=== PATIENT | male | born 1950 | race Hispanic/Latino ===

== ENCOUNTER 2020-09-07 22:32 | Observation (INO) | payer OTHER ==
[~2020-09-07] VITALS: Ht 162.6 cm; Wt 71.7 kg
[2020-09-07 23:03] LABS: BASOPHILS % (AUTO) 0.4 % (0.0-5.0); EOSINOPHILS % (AUTO) 2.2 % (0.0-8.0); HEMATOCRIT 40.6 % (42-54); LYMPHOCYTES % (AUTO) 32.3 % (21.0-51.0); MEAN CORPUSCULAR HEMOGLOBIN 31.9 pg (27.0-33.0); MEAN CORPUSCULAR HGB CONC 35.2 g/dL (32.0-36.0); MEAN CORPUSCULAR VOLUME 90.6 fL (79-99); MONOCYTES % (AUTO) 6.4 % (3.0-13.0); NEUTROPHILS % (AUTO) 58.5 % (40.0-77.0); PLATELET COUNT (AUTO) 220 K/uL (130-400); RED BLOOD CELL COUNT(AUTO) 4.48 MIL/uL (4.50-6.20); RED CELL DISTRIBUTION WIDTH 11.9 % (11.0-15.5); WHITE BLOOD COUNT (AUTO) 9.2 K/uL (4.8-10.8)
[2020-09-07 23:14] LABS: CREATININE 0.9 mg/dL (0.5-1.5); POTASSIUM 4.2 mmol/L (3.5-5.1)
[2020-09-07 23:19] LABS: ALBUMIN 3.8 g/dL (3.5-5.0); BILIRUBIN,TOTAL 0.4 mg/dL (0.2-1.0); TOTAL PROTEIN, SERUM 7.8 g/dL (6.0-8.3)
[2020-09-08 01:58] LABS: AMPHET/METH SCREEN,URINE NEGATIVE (NEGATIVE); BARBITURATE SCREEN, URINE NEGATIVE (NEGATIVE); BENZODIAZEPINES SCREEN,URINE NEGATIVE (NEGATIVE); CANNABINOID SCREEN,URINE NEGATIVE (NEGATIVE); COCAINE SCREEN,URINE NEGATIVE (NEGATIVE); OPIATE SCREEN,URINE NEGATIVE (NEGATIVE); PHENCYCLIDINE SCREEN,URINE NEGATIVE (NEGATIVE)
[2020-09-08] MEDS ORDERED: ONDANSETRON HCL 4 MG/2 ML VIAL IV PRN (03:15)
[2020-09-08] MEDS: SODIUM CHLORIDE 0.9% 1000ML 1,000 ML IV SCH ×3 (03:15→23:15)
[2020-09-08 05:00] VITALS: BP 131/78
[2020-09-08] MEDS ORDERED: HYDRALAZINE HCL 20 MG/ML VIAL IM PRN (07:00)
[2020-09-08 08:00] VITALS: BP 144/90
[2020-09-08] MEDS ORDERED: FAMOTIDINE 20MG TAB 20 MG TAB PO SCH (09:00)
[2020-09-08] MEDS ORDERED: LOSARTAN 50 MG TABLET PO SCH (09:00)
[2020-09-08] MEDS: PANTOPRAZOLE 40 MG/VIAL IVP SCH (09:23)
[2020-09-08 11:48] VITALS: BP 140/85
[2020-09-08] MEDS ORDERED: LOSA50TA64 PO (12:17)
[2020-09-08] MEDS ORDERED: AMLO-257 PO (12:17)
[2020-09-08] MEDS ORDERED: OMEP-420 PO (12:17)
[2020-09-08] MEDS ORDERED: MONT10TA32 PO (12:17)
[2020-09-08] MEDS ORDERED: LEVO125C4 PO (12:19)
[2020-09-08] MEDS ORDERED: ASPI-1197 PO (12:20)
[2020-09-08] MEDS ORDERED: AMLODIPINE BESYLATE 2.5 MG TAB PO SCH (15:00)
[2020-09-08] MEDS: AMLODIPINE BESYLATE 5 MG TAB PO SCH (15:50)
[2020-09-08 16:00] VITALS: BP 158/86
[2020-09-08] MEDS: ENOXAPARIN SODIUM 30 MG/0.3 ML SQ SCH (16:41)
[2020-09-08] MEDS: LOSARTAN 50 MG TABLET PO SCH (16:42)
[2020-09-08 20:39] VITALS: BP 147/82
[2020-09-09 00:19] VITALS: BP 139/79
[2020-09-09 04:07] VITALS: BP 125/80
[2020-09-09 04:20] LABS: MEAN CORPUSCULAR HGB CONC 34.5 g/dL (32.0-36.0); MEAN CORPUSCULAR VOLUME 92.7 fL (79-99); RED BLOOD CELL COUNT(AUTO) 4.53 MIL/uL (4.50-6.20); WHITE BLOOD COUNT (AUTO) 7.8 K/uL (4.8-10.8)
[2020-09-09] MEDS: SODIUM CHLORIDE 0.9% 1000ML 1,000 ML IV SCH (04:24)
[2020-09-09 04:38] LABS: CREATININE 0.8 mg/dL (0.5-1.5); POTASSIUM 3.9 mmol/L (3.5-5.1)
[2020-09-09 08:00] VITALS: BP 146/80
[2020-09-09] MEDS ORDERED: GADODIAMIDE 10 MMOL/20 ML VIAL IV ONE (10:07)
[2020-09-09] MEDS: PANTOPRAZOLE 40 MG/VIAL IVP SCH (10:40)
[2020-09-09] MEDS: AMLODIPINE BESYLATE 5 MG TAB PO SCH (10:40)
[2020-09-09] MEDS: LOSARTAN 50 MG TABLET PO SCH (10:40)
[2020-09-09] MEDS: ENOXAPARIN SODIUM 30 MG/0.3 ML SQ SCH (10:41)
[2020-09-09 12:00] VITALS: BP 137/85
[2020-09-09] MEDS ORDERED: POTASSIUM CHLORIDE 10% ELIXIR 20 MEQ/15 ML UDCUP PO PRN (13:15)
[2020-09-09] MEDS ORDERED: POTASSIUM CHLORIDE 20 MEQ ERTAB PO PRN (13:15)
[2020-09-09] MEDS ORDERED: POTASSIUM CHLORIDE 20MEQ/100ML 100 ML IV PRN (13:15)
[2020-09-09] MEDS ORDERED: MAGNESIUM 2GM PREMIX 50ML 50 ML IV PRN (13:15)
[2020-09-09] MEDS ORDERED: GLUCAGON 1MG KIT 1 MG ML IM PRN (13:15)
[2020-09-09] MEDS ORDERED: DEXTROSE 50%-WATER 50 ML DISP.SYRIN IV PRN (13:15)
[2020-09-09] MEDS ORDERED: LIDOCAINE HCL-MPF 1% 2ML VIAL IV PRN (13:15)
[2020-09-09 16:00] VITALS: BP 140/86
[2020-09-09 20:47] VITALS: BP 117/70
[2020-09-10 00:14] VITALS: BP 143/96
[2020-09-10 04:05] VITALS: BP 122/72
[2020-09-10 05:16] LABS: ALBUMIN 3.3 g/dL (3.5-5.0); BILIRUBIN,TOTAL 0.5 mg/dL (0.2-1.0); MAGNESIUM 2.1 mg/dL (1.80-2.40); POTASSIUM 3.9 mmol/L (3.5-5.1); TOTAL PROTEIN, SERUM 7.2 g/dL (6.0-8.3)
[2020-09-10 07:56] VITALS: BP 124/75
[2020-09-10] MEDS: LOSARTAN 50 MG TABLET PO SCH (08:49)
[2020-09-10] MEDS: ENOXAPARIN SODIUM 30 MG/0.3 ML SQ SCH (08:49)
[2020-09-10] MEDS: AMLODIPINE BESYLATE 5 MG TAB PO SCH (08:49)
== END 2020-09-10 10:20 | disposition home or self-care (01) ==
LOC: EDH 22:32 → EDHIP 09-08 03:14 → 3DH 09-08 04:41
PROVIDERS: ADMIT Internal Medicine Critical Care Medicine; ATTEND Internal Medicine Critical Care Medicine
DX: D32.0 Benign neoplasm of cerebral meninges (principal); I10 Essential (primary) hypertension; E03.9 Hypothyroidism, unspecified; E87.1 Hypo-osmolality and hyponatremia; K40.90 Unilateral inguinal hernia, without obstruction or gangrene, not specified as recurrent; Z79.82 Long term (current) use of aspirin; Z79.899 Other long term (current) drug therapy
CPT/HCPCS: 36415 ×4; 70450; 70553; 80048; 80053 ×2; 80305; 83735; 84443; 84484 ×3; 85025; 85027; 93005; 93306; 93356; 96361 ×2; 96372 ×3; 96374; 96376; 99285; A9579; C9113 ×3; G0378 ×53; J1650 ×3; J7030

== ENCOUNTER → 2024-05-28 | Outpatient (CLI) | payer OTHER ==
[~2024-05-28] MED LIST: AMLO-257 PO; ASPI-1197 PO; IOHEXOL 350 MG/ML 100ML INFUS..BTL IV ONE; LEVO125C4 PO; LOSA50TA64 PO; MONT-39 PO; OMEP-420 PO
== END | disposition home or self-care (01) ==
LOC: RAH 08:15
PROVIDERS: ATTEND Internal Medicine
DX: K44.9 Diaphragmatic hernia without obstruction or gangrene (principal); N32.89 Other specified disorders of bladder; K62.89 Other specified diseases of anus and rectum; K76.0 Fatty (change of) liver, not elsewhere classified; I70.90 Unspecified atherosclerosis
CPT/HCPCS: 74178; Q9967

== ENCOUNTER 2024-10-14 13:58 | Inpatient (IN) | payer OTHER ==
[~2024-10-14] VITALS: Ht 162.6 cm; Wt 71.2 kg
[~2024-10-14 13:58] MED LIST changes: -IOHEXOL 350 MG/ML 100ML INFUS..BTL IV ONE
--- NOTE | 2024-10-14 15:14 | HMCIMG ---
Exam Type: CHEST 1VW Clinical Information: TACKYCARDIA Comparison: None Findings: The lungs are clear of infiltrates. The heart is normal in size. The bony and soft tissue structures of the chest are unremarkable. Impression: Clear lungs.
--- NOTE | 2024-10-14 15:31 | HP ---
[facility] HISTORY & PHYSICAL Date Patient Seen: Oct 14, 2024 Time of Visit: 15:31 Supervising Physician: Dr. Dax Escobar Primary Care Physician: [facility] Outpatient Specialists: [ ] Inpatient Consults: [ ] PROBLEM LIST: Influenza A Acute complicated cystitis, failed outpatient treatment Sepsis Tachycardia Urine retention Hypertension Hypothyroidism HPI: Patient was a 74-year-old male with a past medical history significant for hypertension who was direct admitted from [facility] today after failed outpatient treatment of acute complicated cystitis. Approximately one week ago patient was also treated for influenza a with p.o. Tamiflu at home. Patient was seen back in the office following treatment of his cystitis with sustained tachycardia and soft blood pressures, was administered bolus IV fluids with mild improvement of his blood pressures. Patient's urinary culture from PCP's office showed E coli rollins susceptible to Rocephin and Macrobid, patient will be started on 2 g of Rocephin IV piggyback daily, pending UA on this admission, patient's heart rate today is between [id number], improved from report from PCP. Patient's chest x-ray shows no acute cardiopulmonary processes, patient states his urinary urgency and retention has improved, pending bladder scan at bedside following his urination of sample. Patient's temperature is 99.1 at this time, SpO2 remains 98% and above, no indication for supplemental O2 at this time. Pending blood labs, patient evaluated in the ED, he is being admitted for acute complicated cystitis which failed outpatient treatment and tachycardia. PAST MEDICAL HX: see above PAST SURGICAL HX: noncontributory SOCIAL HISTORY: No tobacco, ETOH, or illicit drug use Coded Allergies: No Known Drug Allergies (Unverified Allergy, Unknown, 09/08/20) REVIEW OF SYSTEMS: 12 point ROS reviewed with patient. Pertinent positives mentioned above. Otherwise negative. PHYSICAL EXAM: GENERAL: alert, weak, awake oriented x 3 HEENT: EOMI, Sclera non icteric, moist mucosa NECK: Supple, no JVD, trachea midline LUNGS: Clear breath sounds bilaterally. No wheezes HEART: Regular rate and rhythm. Normal S1 and S2, without murmurs ABD: Abdomen soft, nontender. Bowel sounds present EXT: No clubbing cyanosis or edema NEURO: Alert and oriented to person, follows commands Vital Signs (last 8hr) Date Time Temp Pulse Resp B/P (MAP) Pulse Ox O2 Delivery O2 Flow Rate FiO2 10/14/24 13:59 99.0 116 20 122/75 99 0 LABS: DIAGNOSTICS / RADIOLOGY RESULTS: [ ] PLAN NEURO: Minimize central acting medications as possible. Maintain fall precautions, adequate lighting during the day PULMONARY: Supplemental 02 as needed. Maintain aspiration precautions at all times CARDIOVASCULAR: Follow hemodynamics. Vital signs per facility protocol GI & NUTRITION: Continue with nutritional support. Continue stool softeners and laxatives as needed. KIDNEYS & ELECTROLYTES: Strict monitoring of intake, output and overall fluid balance. Avoid nephrotoxic medications to the extent possible. Medications to be dosed according to renal function. Monitor electrolytes and replace as needed ENDOCRINE: Maintain blood glucose between 100-180 at all times. Hypoglycemia protocol in place INFECTIOUS DISEASE: Trend temperature, WBC and procalcitonin level Follow cultures, deescalate antibiotics as soon as possible. Panculture if new onset fever ONCOLOGY/HEMATOLOGY/COAGULATION: Monitor for s/s of bleeding Monitor hemoglobin, coagulation studies as needed SKIN: Pressure ulcer prevention per facility protocol Specialty mattress ORTHO/REHAB: Continue PT/OT Prophylaxis: Continue GI and DVT prophylaxis Code Status: Full Resuscitation Disposition: TBD Other: Total patient care time exceeds 35 minutes excluding all procedures. SOPHIE MENDEZ Oct 14, 2024 15:31
[2024-10-14 16:23] LABS: HEMATOCRIT 37.3 % (42-54); MEAN CORPUSCULAR HEMOGLOBIN 32.9 pg (27.0-33.0); MEAN CORPUSCULAR HGB CONC 34.6 g/dL (32.0-36.0); MEAN CORPUSCULAR VOLUME 95.2 fL (79-99); PLATELET COUNT (AUTO) 136 K/uL (130-400); RED BLOOD CELL COUNT(AUTO) 3.92 MIL/uL (4.50-6.20); RED CELL DISTRIBUTION WIDTH 12.5 % (11.0-15.5); WHITE BLOOD COUNT (AUTO) 9.6 K/uL (4.8-10.8)
[2024-10-14 16:43] LABS: CREATININE 1.3 mg/dL (0.5-1.3); POTASSIUM 3.7 mmol/L (3.5-5.1)
[2024-10-14 16:47] LABS: ALBUMIN 2.3 g/dL (3.5-5.0); BILIRUBIN,TOTAL 0.7 mg/dL (0.2-1.0)
[2024-10-14] MEDS ORDERED: doCUSate SODIUM 100 MG CAP PO PRN (17:00)
[2024-10-14] MEDS ORDERED: DiphenhydrAMINE HCL 50 MG/ML VIAL IV PRN (17:00)
[2024-10-14] MEDS ORDERED: ZOLPidem TARTrate 5 MG TAB PO PRN (17:00)
[2024-10-14] MEDS ORDERED: polyETHYLene GLYCol 3350 17 GM POWD.PACK PO PRN (17:00)
[2024-10-14] MEDS ORDERED: MAG/ALUM/SIMETH 30 ML UDCUP PO PRN (17:00)
[2024-10-14] MEDS ORDERED: NITROGLYCERIN 0.4 MG SL TAB SL PRN (17:00)
[2024-10-14] MEDS ORDERED: LOPERAMIDE HCL 2 MG CAP PO PRN (17:00)
[2024-10-14] MEDS ORDERED: LACTULOSE 20 GM/30 ML UDCUP PO PRN (17:00)
[2024-10-14] MEDS ORDERED: guaiFENesin-DM 200/20MG 10ML PO PRN (17:00)
[2024-10-14] MEDS ORDERED: ondanSETRON 4MG INJ IV PRN (17:00)
[2024-10-14] MEDS ORDERED: ALPRAZolam 0.5 MG TABLET PO PRN (17:00)
[2024-10-14] MEDS ORDERED: guaiFENesin SUGAR-FREE 100 MG/5 ML UDCUP PO PRN (17:00)
[2024-10-14] MEDS ORDERED: acetaMINOPHEN 325 MG TAB PO PRN ×2 (17:00)
[2024-10-14] MEDS ORDERED: ARTIFICAL TEARS SOL 15 ML OP PRN (17:00)
[2024-10-14] MEDS ORDERED: BENZOCAINE/MENTH/CETYLPYRD CL 1 EACH LOZENGE MM PRN (17:00)
[2024-10-14] MEDS ORDERED: DiphenhydrAMINE HCL 25 MG CAPSULE PO PRN (17:00)
[2024-10-14 17:11] LABS: BAND NEUTROPHILS % (MANUAL) 4 % (0-2); LYMPHOCYTES % (MANUAL) 9 % (22-44); MAN.DIFF COMMENT-IMPRESSION MANUAL DIFFERENTIAL; MONOCYTES % (MANUAL) 9 % (2-9); PLATELET MORPHOLOGY COMMENT ADEQUATE; SEGMENTED NEUTROPHILS % 78 % (40-70); TOTAL CELLS COUNTED 100
[2024-10-14 17:38] LABS: ERYTHROCYTE SEDIMENTATION RATE 92 MM/HR (0-20)
--- NOTE | 2024-10-14 18:12 | NUR ---
PT manuel held, pt in ER4 tachycardic at this time. Per familiy they prefer to wait and see the doctor regarding infection first. Pt has concerns " will insurance pay for this". PT to follow.
[2024-10-14 19:15] LABS: APPEARANCE,URINE CLOUDY (CLEAR); BILIRUBIN,URINE NEGATIVE (NEGATIVE); COLOR,URINE YELLOW (YELLOW); GLUCOSE, URINE (UA) NEGATIVE (NEGATIVE); KETONES,URINE NEGATIVE (NEGATIVE); LEUKOCYTE ESTERASE ,URINE 500 Leu/uL (NEGATIVE); NITRATE,URINE NEGATIVE (NEGATIVE); OCCULT BLOOD,URINE LARGE (NEGATIVE); PROTEIN,URINE 50 mg/dL (NEGATIVE)
[2024-10-14 19:16] LABS: ADD UA MICROSCOPIC YES
[2024-10-14 19:25] LABS: BACTERIA,URINE MANY /HPF (None Seen); MUCUS,URINE RARE LPF (None Seen); NON-SQUAMOUS EPITHELIAL CELL 2 /HPF (0-2); SQUAMOUS EPITHELIAL CELL,UR RARE /HPF (0-2); UNCLASSIFIED CRYSTAL 1 /HPF (None Seen); WBC CLUMP MANY /HPF (0-1); WBC,URINE TNTC /HPF (0-1)
[2024-10-14] MEDS ORDERED: PoTASSium chloRIDE 20MEQ/100ML 100 ML IV PRN (20:00)
[2024-10-14] MEDS: cefTRIAXone 1G VIAL IVPB SCH (20:56)
[2024-10-14] MEDS: FAMOTIDINE 20MG VIAL IV SCH (20:56)
[2024-10-14] MEDS ORDERED: FAMOTIDINE 20MG TAB PO SCH (21:00)
[2024-10-14] MEDS: INSULIN humuLIN R 100 UNIT/ML 3ML SQ SCH (21:00)
[2024-10-14] MEDS ORDERED: OMEP40CA21 PO (21:45)
[2024-10-14] MEDS ORDERED: ERGO500093 PO (21:45)
[2024-10-14] MEDS ORDERED: LEVO175T9 PO (21:45)
[2024-10-14] MEDS ORDERED: ASPI-1443 PO (21:45)
[2024-10-14] MEDS ORDERED: ATOR20TA65 PO (21:45)
[2024-10-14] MEDS ORDERED: CETI10TA57 PO (21:45)
[2024-10-14] MEDS ORDERED: LOSA100T59 PO (21:45)
[2024-10-14] MEDS ORDERED: FLUT15.845 NS (21:45)
[2024-10-14 22:00] VITALS: BP 136/84; PULSE 109; RESP 16; TEMP 98.7; O2SAT 98
[2024-10-15 04:00] VITALS: BP 122/74; PULSE 84; RESP 16; TEMP 98.4
[2024-10-15 06:11] LABS: HEMATOCRIT 37.3 % (42-54); MEAN CORPUSCULAR HGB CONC 34.9 g/dL (32.0-36.0); MEAN CORPUSCULAR VOLUME 94.7 fL (79-99); RED BLOOD CELL COUNT(AUTO) 3.94 MIL/uL (4.50-6.20); RED CELL DISTRIBUTION WIDTH 12.3 % (11.0-15.5)
[2024-10-15 06:26] LABS: CREATININE 1.2 mg/dL (0.5-1.3)
--- NOTE | 2024-10-15 06:35 | EKG ---
[facility] Test Date: 2024-10-14 Test Time: 16:17:25 Pat Name: TYRELL MEDINA Department: [facility] Room: 325 1 Gender: M [employer]: [id number] : 1950 Requested By: SOPHIE MENDEZ Order Number: [id number] Reading MD: Raissa Owens Measurements Intervals [place] Rate: 103 P: 40 WI: 138 QRS: -35 QRSD: 93 T: 33 QT: 316 QTc: 414 Interpretive Statements Sinus tachycardia Left axis deviation Compared to ECG 09/07/2020 22:53:19 Left-axis deviation now present Sinus rhythm no longer present Electronically Signed On 10-15-2024 10:21:27 CDT by Raissa Owens Please click the below link to view image of tracing.
[2024-10-15 08:00] VITALS: BP 130/71; PULSE 99; RESP 18; TEMP 98.5; O2SAT 94
--- NOTE | 2024-10-15 09:02 | NUR ---
Pt continues to be tachycardic (105 bpm). PT eval held. Nurse notified.
[2024-10-15 11:31] VITALS: BP 133/75; PULSE 90; RESP 18; TEMP 97.7
--- NOTE | 2024-10-15 15:28 | PN ---
[facility] PROGRESS NOTE Date Patient Seen: Oct 15, 2024 Time of Visit: 15:28 Supervising Physician: [ ] Supervising Physician: Dr. Kemar Jordan Primary Care Physician: Teri Outpatient Specialists: [ ] Inpatient Consults: [ ] PROBLEM LIST: Influenza A Acute complicated cystitis, failed outpatient treatment Sepsis Tachycardia Urine retention Hypertension Hypothyroidism INTERVAL HISTORY: Patient evaluated at bedside today with family present. Continues on Rocephin at this time, pending urinary cultures patient was advised of the treatment plan and is in agreement, likely to discharge once urinary cultures are returned. Patient also found to have conjunctivitis on physical exam, Vigamox drops ordered and scheduled t.i.d.. Lower extremity venous Doppler will also be ord ered as the patient has complaints of right-sided leg pain. Patient was no further complaints at this time, heart rate is within normal limits, patient was remained afebrile and denies any nausea or vomiting. Bowel movements and diet appear to be within normal limits as well. We will continue to monitor in request morning labs for evaluation prior to possible discharge on outpatient antibiotics REVIEW OF SYSTEMS: 12 point ROS reviewed with patient. Pertinent positives mentioned above. Otherwise negative. PHYSICAL EXAM: GENERAL: alert, weak, awake oriented x 3 HEENT: EOMI, Sclera non icteric, moist mucosa NECK: Supple, no JVD, trachea midline LUNGS: Clear breath sounds bilaterally. No wheezes HEART: Regular rate and rhythm. Normal S1 and S2, without murmurs ABD: Abdomen soft, nontender. Bowel sounds present EXT: No clubbing cyanosis or edema NEURO: Alert and oriented to person, follows commands Vital Signs (last 8hr) Date Time Temp Pulse Resp B/P (MAP) Pulse Ox O2 Delivery O2 Flow Rate FiO2 10/15/24 11:31 97.7 90 18 133/75 97 Room Air 10/15/24 08:00 98.4 99 18 130/71 94 LABS: Hematology Labs: Test 10/15/24 04:36 10/14/24 16:14 Range/Units White Blood Count 11.0 H 4.8-10.8 K/uL Red Blood Count 3.94 L 4.50-6.20 MIL/uL Hemoglobin 13.0 L 14.0-18.0 g/dL Hematocrit 37.3 L 42-54 % Mean Corpuscular Volume 94.7 79-99 fL Mean Corpuscular Hemoglobin 33.0 27.0-33.0 pg Mean Corpuscular Hemoglobin Concent 34.9 32.0-36.0 g/dL Red Cell Distribution Width 12.3 11.0-15.5 % Platelet Count 161 130-400 K/uL Mean Platelet Volume 9.6 7.5-10.5 fL Nucleated Red Blood Cells 0.0 0.0-0.19 % Segmented Neutrophils % 78 H 40-70 % Band Neutrophils % 4 H 0-2 % Lymphocytes % (Manual) 9 L 22-44 % Monocytes % (Manual) 9 2-9 % Differential Comment MANUAL DIFFERENTIAL White Cell Morphology Comment Platelet Morphology Comment ADEQUATE Red Blood Cell Morphology ANISO 1+ Erythrocyte Sedimentation Rate 92 H 0-20 MM/HR Chemistry Labs: Test 10/15/24 10:49 10/15/24 04:36 10/14/24 16:14 Range/Units Whole Blood Glucose 125 H 70-110 MG/DL Sodium Level 136 136-145 mmol/L Potassium Level 4.0 3.5-5.1 mmol/L Chloride Level 101 101-111 mmol/L Carbon Dioxide Level 27 21-32 mmol/L Blood Urea Nitrogen 26 H 7-18 mg/dL Creatinine 1.2 0.5-1.3 mg/dL Glomerular Filtration Rate Calc 63 >90 mL/min Random Glucose 102 70-105 mg/dL Total Calcium 8.6 8.5-10.1 mg/dL Total Bilirubin 0.7 0.2-1.0 mg/dL Aspartate Amino Transf (AST/SGOT) 161 H 10-37 U/L Alanine Aminotransferase (ALT/SGPT) 187 H 12-78 U/L Alkaline Phosphatase 139 H 50-136 U/L Total Protein 7.0 6.0-8.3 g/dL Albumin 2.3 L 3.5-5.0 g/dL DIAGNOSTICS / RADIOLOGY RESULTS: [ ] PLAN NEURO: Minimize central acting medications as possible. Maintain fall precautions, adequate lighting during the day PULMONARY: Supplemental 02 as needed. Maintain aspiration precautions at all times CARDIOVASCULAR: Follow hemodynamics. Vital signs per facility protocol GI & NUTRITION: Continue with nutritional support. Continue stool softeners and laxatives as needed. KIDNEYS & ELECTROLYTES: Strict monitoring of intake, output and overall fluid balance. Avoid nephrotoxic medications to the extent possible. Medications to be dosed according to renal function. Monitor electrolytes and replace as needed ENDOCRINE: Maintain blood glucose between 100-180 at all times. Hypoglycemia protocol in place INFECTIOUS DISEASE: Trend temperature, WBC and procalcitonin level Follow cultures, deescalate antibiotics as soon as possible. Panculture if new onset fever ONCOLOGY/HEMATOLOGY/COAGULATION: Monitor for s/s of bleeding Monitor hemoglobin, coagulation studies as needed SKIN: Pressure ulcer prevention per facility protocol Specialty mattress ORTHO/REHAB: Continue PT/OT Prophylaxis: Continue GI and DVT prophylaxis Code Status: Full Resuscitation Disposition: TBD Other: Total patient care time exceeds 35 minutes excluding all procedures. SOPHIE MENDEZ Oct 15, 2024 15:28
[2024-10-15 16:00] VITALS: BP 119/66; PULSE 98; RESP 18; TEMP 98.4
--- NOTE | 2024-10-15 16:21 | NUR ---
Pt ENDORSED to nursing. No PT needs. Pt ambulates in room, and is showering self, transferring I. Pt and spouse deny PT needs. DC home no needs.
[2024-10-15 19:00] VITALS: BP 133/77; PULSE 107; RESP 18; TEMP 99
[2024-10-15 20:20] VITALS: O2SAT 94
[2024-10-15] MEDS: MOXIFLOXACIN HCL 0.5% 3ML DROPS OD SCH (21:44)
[2024-10-16 00:24] VITALS: BP 132/81; PULSE 102; RESP 18; TEMP 98.5
[2024-10-16 04:31] VITALS: BP 123/77; PULSE 98; RESP 18; TEMP 98.8
[2024-10-16 05:55] LABS: HEMATOCRIT 37.8 % (42-54); MEAN CORPUSCULAR HEMOGLOBIN 32.9 pg (27.0-33.0); MEAN CORPUSCULAR HGB CONC 34.4 g/dL (32.0-36.0); MEAN CORPUSCULAR VOLUME 95.7 fL (79-99); RED BLOOD CELL COUNT(AUTO) 3.95 MIL/uL (4.50-6.20); RED CELL DISTRIBUTION WIDTH 12.5 % (11.0-15.5); WHITE BLOOD COUNT (AUTO) 11.9 K/uL (4.8-10.8)
[2024-10-16 06:06] LABS: CREATININE 1.3 mg/dL (0.5-1.3); POTASSIUM 3.8 mmol/L (3.5-5.1)
[2024-10-16 08:00] VITALS: BP 117/78; PULSE 96; RESP 18; TEMP 98.4
[2024-10-16] MEDS: PoTASSium chl 10% ELIXIR 20MEQ 20 MEQ/15 ML UDCUP PO PRN (08:00)
--- NOTE | 2024-10-16 08:30 | HMCIMG ---
Exam Type: US VENOUS DOPPLER UNILATERAL Clinical Information: pain to right lower extremity Comparison: None Findings: The examination shows normal deep venous system. There is normal compressibility at all levels. There is no intraluminal clot. There is no occlusion. Adequate response is obtained on augmentation. Impression: No evidence of DVT.
[2024-10-16] MEDS ORDERED: SULF1TAB42 PO (11:01)
[2024-10-16] MEDS ORDERED: MOXIOS OP (11:01)
--- NOTE | 2024-10-16 15:46 | DS ---
[facility] DISCHARGE SUMMARY Date Patient Seen: Oct 16, 2024 Time of Visit: 15:43 Supervising Physician: Dr. Kemar Jordan Primary Care Physician: Teri Outpatient Specialists: [ ] Inpatient Consults: [ ] HOSPITAL COURSE: HPI (per admitting provider) Patient was a 74-year-old male with a past medical history significant for hypertension who was direct admitted from [facility] today after failed outpatient treatment of acute complicated cystitis. Approximately one week ago patient was also treated for influenza a with p.o. Tamiflu at home. Patient was seen back in the office following treatment of his cystitis with sustained tachycardia and soft blood pressures, was administered bolus IV fluids with mild improvement of his blood pressures. Patient's urinary culture from PCP's office showed E coli rollins susceptible to Rocephin and Macrobid, patient will be started on 2 g of Rocephin IV piggyback daily, pending UA on this admission, patient's heart rate today is between [id number], improved from report from PCP. Patient's chest x-ray shows no acute cardiopulmonary processes, patient states his urinary urgency and retention has improved, pending bladder scan at bedside following his urination of sample. Patient's temperature is 99.1 at this time, SpO2 remains 98% and above, no indication for supplemental O2 at this time. Pending blood labs, patient evaluated in the ED, he is being admitted for acute complicated cystitis which failed outpatient treatment and tachycardia. The patient was treated for the following problems: Upon discharge patient's pulse was within normal limits, tachycardia resolved shortly after admission. Culture came back positive for E coli pansensitive, patient was being discharged on Bactrim with a close follow-up with his PCP, patient also developed conjunctivitis during his admission which has been treated with Vigamox and has responded nicely to the treatment, patient was being discharged with a five day course t.i.d.. Patient had several questions that were answered upon discharge. ACTIVE PROBLEM LIST FOR THE HOSPITALIZATION: Influenza A, treated Acute complicated cystitis, failed outpatient treatment, continue treatment on Bactrim Conjunctivitis, treating with vigamox CHRONIC PROBLEMS: continue previous management per PCP unless otherwise indicated Sepsis Tachycardia Urine retention Hypertension Hypothyroidism [employer] FINDINGS/RECOMMENDATIONS: [ ] PROCEDURES: as mentioned above DISCHARGE MEDICATIONS: Pt hemodynamically stable and afebrile at time of discharge. PCP notified of patients admission, hospital course and discharge. PHYSICAL EXAM: GENERAL: alert, weak, awake oriented x 3 HEENT: EOMI, Sclera non icteric, moist mucosa NECK: Supple, no JVD, trachea midline LUNGS: Clear breath sounds bilaterally. No wheezes HEART: Regular rate and rhythm. Normal S1 and S2, without murmurs ABD: Abdomen soft, nontender. Bowel sounds present EXT: No clubbing cyanosis or edema NEURO: Alert and oriented to person, follows commands FOLLOW-UP: Follow-up with PCP in 2-3 days RECOMMENDATIONS: See Discharge Instructions This case was seen and discussed with my supervising physician. More than 30 minutes spent on discharge process, including evaluation of the patient, discussion with nursing staff, medication reconciliation and follow-up appointments SOPHIE MENDEZ Oct 16, 2024 15:46
--- NOTE | 2024-10-16 20:54 | NUR ---
DISCHARGE NOTE late entry ID and IV removed. Discharge instructions provided to patient and spouse. Medication prescriptions sent to pharmacy of choice. Belongings packed and taken with patient. Patient taken down in wheelchair to private vehicle.
== END 2024-10-16 12:30 | disposition home or self-care (01) | DRG 872 ==
LOC: EDH 13:58 → DIRECT 13:59 → 3DH 21:26
PROVIDERS: ADMIT Internal Medicine; ATTEND Internal Medicine
DX: A41.9 Sepsis, unspecified organism (principal); N30.00 Acute cystitis without hematuria; J10.1 Influenza due to other identified influenza virus with other respiratory manifestations; I10 Essential (primary) hypertension; E03.9 Hypothyroidism, unspecified; H10.89 Other conjunctivitis; R33.8 Other retention of urine; B96.20 Unspecified Escherichia coli [E. coli] as the cause of diseases classified elsewhere
CPT/HCPCS: 36415; 71045; 80048; 80053; 81001; 82948; 85025; 85027; 85651; 87040; 87086; 87186; 93005; 93971; G0378; J0696; J3490